=== PATIENT | female | born 1990 | race Caucasian/White ===

== ENCOUNTER 2017-07-24 03:10 | Inpatient (IN) | payer OTHER ==
[2017-07-24] VITALS (25 sets, daily range): BP systolic 108–150; BP diastolic 60–91
[~2017-07-24] VITALS: Ht 167.6 cm; Wt 100.0 kg
[2017-07-24] MEDS ORDERED: PRENTAB9 PO (04:08)
[2017-07-24] MEDS ORDERED: ZOLO50TA PO (04:08)
[2017-07-24] MEDS ORDERED: BENA25CA4 PO (04:08)
[2017-07-24] MEDS: LR 1,000 ML IV SCH ×2 (04:55→13:53)
[2017-07-24] MEDS ORDERED: LACTATED RINGER'S 1000 ML IV STA (04:55)
--- NOTE | 2017-07-24 05:09 | HPEPDOC ---
Obstetrical History & Physical General Date of Admission Jul 24, 2017 at 04:53 History of Present Illness 26 y/o at 40+6 for reg painful ctx's. Radha LOF or heavy VB. Slight spotting, reddish mucousy d/c. Pos FM. Ctx's most of the night. 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 Past Medical History Medical History depression kidney stones Surgical History: Appendectomy, [place] teeth Family History Significant Family History: No pertinent family hx Social History Marital Status: Family situation: Spouse/partner home Psychosocial History: No pertinent psych hx * Smoker: non-smoker Alcohol: Denies Drugs: denies Abuse Violence Screening Have you been hit/kicked/slapp: No Have you been sexually assault: No Imunizations Tdap status: current Influenza Status: current Allergies Coded Allergies: Amoxicillin (Verified Allergy, Intermediate, rash, 07/24/17) Medications Scheduled Multivitamins/ ( 27-0.8 mg) 1 Tab Tab, 1 TAB PO DAILY Miscellaneous Medications Diphenhydramine HCl (Benadryl Allergy) 25 Mg Cap, 25 MG PO Sertraline Hcl (Zoloft) 50 Mg Tab, 50 MG PO Physical Examination Physical Examination GENERAL: Alert and oriented times three. FETUS: Is vertex (VTX) by sterile vaginal examination (SVE), 3-4/90/-1/vtx well applied. HEART RATE: Regular rate and rhythm. LUNGS: Clear to auscultation (CTA). EXTREMITIES: No edema. Vital Signs/I&O Vital Signs Date Time Temp Pulse Resp B/P (MAP) Pulse Ox O2 Delivery O2 Flow Rate FiO2 07/24/17 03:25 97.9 98 19 133/91 (105) Laboratory Data Urine Culture: Contaminated (UA neg) Pertinent Laboratoy Data Blood Type: O+ RBC Antibody Screen: Negative HIV: Negative Hepatitis B: Negative Hepatitis C: Unknown Rapid Plasma Reagin: Nonreactive Rubella: Immune Varicella: Immune Chlamydia/Gonorrhea: Negative Group B Streptococcus: Negative Quad Screen Test: Negative Cystic Fibrosis: Declined Glucose Tolerance Test: 106 Anatomy Ultrasound Ultrasound Date: February 26, 2017 Placenta Location: Anterior Normal Anatomy: Yes Placenta Previa: No Assessment Variability: Moderate Accelerations: Positive Decelerations: Late (X1, isolated at ~0400) Tocometer Contractions: Yes Frequency: regular Duration: greater than 60 seconds Strength: palpated as moderate Assessment/Plan Assessment 40+6, scheduled for IOL tomorrow with reg ctx's and a single late decel, almost cative labor, vtx well applied. BBOW on exam. Plan Admit and orient. Head Still Operator and consent. Diet: clrs Group B Streptococcus (GBS) neg Labs and intravenous (IV) per unit protocol. Counseled on Pitocin and induction of labor (IOL). Lactated Ringers (LR): declines epidural for now Anticipate normal spontaneous delivery () C-S as appropriate. Recheck cx likely at ~0900, Will SBAR oncoming provider ~730. SESSIONS,JANUARY Molina MD Jul 24, 2017 05:09
[2017-07-24 05:32] LABS: MEAN CORPUSCULAR HEMOGLOBIN 32.1 pg (27.0-33.0); MEAN CORPUSCULAR HGB CONC 35.3 g/dl (32.0-36.5); RED CELL DISTRIBUTION WIDTH 12.5 % (11.5-14.5); WHITE BLOOD COUNT 12.3 10^3/uL (4.0-10.0)
[2017-07-24] MEDS ORDERED: FAMOTIDINE IV BAG 20 MG in APPROPRIATE DILUENT 1 EA IV ONE (09:45)
[2017-07-24] MEDS ORDERED: OXYTOCIN 30 UNITS IN 0.9% NaCl 500ML IV BAG (J2590) As Ordered ONE (19:17)
[2017-07-24] MEDS ORDERED: LR 1,000 ML IV SCH (19:36)
[2017-07-24] MEDS ORDERED: NALBUPHINE HCL 10 MG/ML AMP (J2300) IM ONE (19:45)
[2017-07-24] MEDS ORDERED: NALBUPHINE HCL 10 MG/ML AMP (J2300) IV ONE (19:45)
[2017-07-24] MEDS ORDERED: PROMETHAZINE INJ 25 MG/ML VIAL (J2550) IV ONE (19:45)
[2017-07-24] MEDS ORDERED: OXYTOCIN DRIP 30 UNITS in APPROPRIATE DILUENT 1 EA IV SCH (19:45)
[2017-07-25] VITALS (43 sets, daily range): BP systolic 96–148; BP diastolic 52–87
[2017-07-25] MEDS ORDERED: PROMETHAZINE INJ 25 MG/ML VIAL (J2550) IV STA (03:54)
[2017-07-25] MEDS ORDERED: NALBUPHINE HCL 10 MG/ML AMP (J2300) IV STA (03:54)
[2017-07-25] MEDS ORDERED: NALOXONE INJ 0.4 MG/1 ML VIAL (J2310) As Ordered ONE (05:05)
[2017-07-25] MEDS ORDERED: FENTANYL 2MCG/ML ROPIVACAINE 0.2% IN 0.9% NACL 200ML IVBAG As Ordered ONE (07:31)
[2017-07-25] MEDS ORDERED: NALOXONE INJ 0.4 MG/1 ML VIAL (J2310) IV PRN (09:00)
[2017-07-25] MEDS ORDERED: EPIDURAL/PCA KEYS XX PRN (09:00)
[2017-07-25] MEDS ORDERED: LACTATED RINGER'S 1000 ML IV PRN (09:00)
[2017-07-25] MEDS ORDERED: REFRIGERATOR IV KEYS XX PRN (09:00)
[2017-07-25] MEDS ORDERED: FENTANYL/ROPIVACAINE/NACL BAG 200 ML EPIDURAL SCH (09:00)
[2017-07-25] MEDS ORDERED: diphenhydrAMINE INJ 50MG/ML VIAL (J1200) IV PRN (09:00)
[2017-07-25] MEDS ORDERED: ePHEDrine SULFATE 25 MG/5 ML(5MG/ML) SYRINGE IV PRN (09:00)
[2017-07-25] MEDS ORDERED: ONDANSETRON 4MG/2ML VIAL (J2405) IV PRN ×2 (09:00→17:30)
[2017-07-25] MEDS ORDERED: EPIDURAL COMMENT XX SCH (09:00)
[2017-07-25] MEDS ORDERED: OXYTOCIN 30 UNITS IN 0.9% NaCl 500ML IV BAG (J2590) As Ordered ONE (17:05)
[2017-07-25] MEDS ORDERED: miSOPROStol 200 MCG TAB (S0191) PR ONE (17:30)
[2017-07-25] MEDS ORDERED: PROMETHAZINE 25 MG TAB PO PRN (17:30)
[2017-07-25] MEDS ORDERED: CARBOPROST TROMETHAMINE 250 MCG/ML AMP IM ONE (17:30)
[2017-07-25] MEDS ORDERED: RHOGAM 300 MCG (1500 IU) INJ (J2790) IM SCH (17:30)
[2017-07-25] MEDS ORDERED: OXYTOCIN DRIP 30 UNITS in APPROPRIATE DILUENT 1 EA IV SCH ×2 (17:30→18:00)
[2017-07-25] MEDS ORDERED: METHYLERGONOVINE MALEATE 0.2 MG TAB PO PRN (17:30)
[2017-07-25] MEDS ORDERED: DIBUCAINE 1% OINTMENT 30GM TOP PRN (17:30)
[2017-07-25] MEDS ORDERED: ACETAMINOPHEN 500 MG TAB PO PRN (17:30)
[2017-07-25] MEDS ORDERED: MEASLES,MUMPS,RUBELLA VACCINE INJ (MMR-II) (90707) SC SCH (17:30)
[2017-07-25] MEDS ORDERED: METHYLERGONOVINE MALEATE 0.2 MG/ML VIAL (J2210) IM ONE (17:30)
[2017-07-25] MEDS: IBUPROFEN 800 MG TAB PO PRN (18:45)
[2017-07-25] MEDS: DOCUSATE SODIUM 100 MG CAP PO SCH (21:00)
[2017-07-26 06:31] VITALS: BP 85/48
[2017-07-26 06:54] LABS: MEAN CORPUSCULAR HGB CONC 34.5 g/dl (32.0-36.5); MEAN CORPUSCULAR VOLUME 92.8 fl (80.0-96.0); WHITE BLOOD COUNT 18.2 10^3/uL (4.0-10.0)
[2017-07-26] MEDS: PRENATAL VITAMINS CHEWABLE TABLET PO SCH (08:30)
[2017-07-26] MEDS: DOCUSATE SODIUM 100 MG CAP PO SCH ×2 (08:30→21:00)
[2017-07-26 09:53] VITALS: BP 104/58
[2017-07-26] MEDS ORDERED: NS 1,000 ML IV SCH (10:00)
[2017-07-26] MEDS ORDERED: diphenhydrAMINE 25 MG CAP PO ONE (10:00)
[2017-07-26] MEDS: IBUPROFEN 800 MG TAB PO PRN (13:29)
[2017-07-26 17:33] VITALS: BP 122/72
[2017-07-26 20:59] LABS: MEAN CORPUSCULAR HEMOGLOBIN 32.4 pg (27.0-33.0); MEAN CORPUSCULAR HGB CONC 34.9 g/dl (32.0-36.5); MEAN CORPUSCULAR VOLUME 92.9 fl (80.0-96.0); RED CELL DISTRIBUTION WIDTH 13.5 % (11.5-14.5); WHITE BLOOD COUNT 19.2 10^3/uL (4.0-10.0)
[2017-07-26 22:00] VITALS: BP 104/57
[2017-07-27 02:00] VITALS: BP 99/58
[2017-07-27 06:00] VITALS: BP 99/63
[2017-07-27] MEDS: PRENATAL VITAMINS CHEWABLE TABLET PO SCH (08:25)
[2017-07-27] MEDS: DOCUSATE SODIUM 100 MG CAP PO SCH (08:25)
[2017-07-27 10:36] VITALS: BP 121/71
[2017-07-27] MEDS ORDERED: IBUP-1114 PO (10:47)
[2017-07-27] MEDS ORDERED: COLA100C5 PO (10:47)
[2017-07-27] MEDS ORDERED: ACET50TA PO (10:47)
== END 2017-07-27 11:44 | disposition home or self-care (01) | DRG 774 ==
LOC: M LDO 03:10 → M LDI 04:53 → M OBS 07-25 19:45
PROVIDERS: ADMIT Obstetrics & Gynecology; ATTEND Obstetrics & Gynecology
PROC: 10E0XZZ Delivery of Products of Conception, External Approach (ICD-10-PCS; principal; 2017-07-24)
PROC: 0KQM0ZZ Repair Perineum Muscle, Open Approach (ICD-10-PCS; 2017-07-24)
PROC: 10907ZC Drainage of Amniotic Fluid, Therapeutic from Products of Conception, Via Natural or Artificial Opening (ICD-10-PCS; 2017-07-24)
PROC: 30253N1 (ICD-10-PCS; 2017-07-26)
DX: O48.0 Post-term pregnancy (principal); O72.1 Other immediate postpartum hemorrhage; O77.0 Labor and delivery complicated by meconium in amniotic fluid; Z3A.40 40 weeks gestation of pregnancy; O70.1 Second degree perineal laceration during delivery; Z37.0 Single live birth; O99.03 Anemia complicating the puerperium; D64.9 Anemia, unspecified